=== PATIENT | male | born 1960 | race Caucasian/White ===

== ENCOUNTER → 2023-09-26 | Outpatient (CLI) | payer MEDICARE ==
--- NOTE | 2023-09-26 13:57 | CT ---
EXAMINATION TYPE: CT left knee - [facility] Protocol DATE OF EXAM: 09/26/2023 COMPARISON: NONE HISTORY: pre-op left total knee CT DLP: 1296 mGycm. Automated Exposure Control for Dose Reduction was Utilized. TECHNIQUE: CT scan of the left lower extremity is performed without contrast. FINDINGS: Exam is for surgical planning and not for diagnostic purposes. Incidental some diverticula in the sig moid colon are seen on CT pelvic images. Moderate axial joint space loss in both hips is appreciated. Images of the left knee show moderate to severe narrowing with joint space sclerosis medial tibiofem oral compartment. Imaging of the bilateral ankles shows asymmetric more prominent degenerative change s on the left. IMPRESSION: As above.
== END | disposition home or self-care (01) ==
LOC: RADCTMAIN 12:59
PROVIDERS: ATTEND Orthopaedic Surgery
DX: Z01.818 Encounter for other preprocedural examination (principal); M17.12 Unilateral primary osteoarthritis, left knee; K57.30 Diverticulosis of large intestine without perforation or abscess without bleeding

== ENCOUNTER → 2023-10-11 | Outpatient (CLI) | payer MEDICARE ==
[2023-10-11 14:48] LABS: Partial Thromboplastin Time 24.5 sec (22.0-30.0)
[2023-10-11 18:18] LABS: HCT 45.6 % (39.6-50.0); HGB 14.7 g/dL (13.0-17.0); MCH 27.2 pg (27.0-32.0); MCHC 32.2 g/dL (32.0-37.0); MCV 84.4 FL (80.0-97.0); Mean Platelet Volume 10.2 FL (9.5-12.2); NRBC Per 100 WBC 0 X 10*3/uL (0.00-0.01); Platelet Count 175 X 10*3/uL (140-440); RDW 13.9 % (11.5-14.5); WBC 9.23 X 10*3/uL (4.50-10.00)
[2023-10-11 18:29] LABS: ALT 20 U/L (10-49); AST 19 U/L (14-35); Albumin 4.5 g/dL (3.8-4.9); Alkaline Phosphatase 98 U/L (41-126); BUN/Creat Ratio 14.67 Ratio (12.00-20.00); Blood Urea Nitrogen 13.2 mg/dL (9.0-27.0); Calcium 9.6 mg/dL (8.7-10.3); Chloride 105 mmol/L (96-109); Globulin 2.5 g/dL (1.6-3.3); Glucose 90 mg/dL (70-110); Potassium 4.4 mmol/L (3.5-5.5); Sodium 142 mmol/L (135-145); Total Bilirubin 0.3 mg/dL (0.3-1.2)
[2023-10-11 22:22] LABS: Prothrombin Time 10.7 sec (10.0-12.5)
[2023-10-12 01:32] LABS: Appearance,Urine Clear (Clear); Bilirubin,Urine Negative (Negative); Blood,Urine Negative (Negative); Color,Urine Yellow (Yellow); Ketones,Urine Negative (Negative); Nitrite,Urine Negative (Negative); Specific Gravity,Urine 1.015 (1.001-1.030); Urobilinogen,Urine 0.2 E.U./DL
== END | disposition home or self-care (01) ==
LOC: LABPAT 13:20
PROVIDERS: ATTEND Orthopaedic Surgery
DX: Z01.812 Encounter for preprocedural laboratory examination (principal); M17.12 Unilateral primary osteoarthritis, left knee
CPT/HCPCS: 80053; 81003; 83036; 85027; 85610; 85730; 87070

== ENCOUNTER 2023-10-24 10:22 | Observation (INO) | payer MEDICARE ==
[~2023-10-24 10:22] MED LIST: ACETAMINOPHEN TAB 500 MG TAB PO PRN; DEXAMETHASONE SOD PHOSPHATE 10 MG/ML 1 ML VIAL IV PRN; DOCUSATE 100 MG CAP PO PRN; FAMOTIDINE 20 MG/2 ML VIAL IVP PRN; HYDROmorphone 0.5 MG/0.5 ML SYRINGE IVP PRN; KETOROLAC 15 MG/ML 1 ML VIAL IVP PRN; LIDOCAINE 1% (10MG/ML) FOR IV START INTRADERMA PRN; ONDANSETRON 4 MG/2 ML VIAL IVP PRN; ROPIVACAINE/EPI/CLONIDINE/KET 50 ML SYRINGE MISCELLANE PRN; TRANEXAMIC 1,000 MG/100ML-NACL 1,000 MG in SALINE 1 100ML.BAG IV PRN; TRANEXAMIC 1,000 MG/100ML-NACL 1,000 MG in SALINE 1 100ML.BAG IVPB PRN; ceFAZolin 3 GM in SODIUM CHLORIDE 0.9% 100 ML IVPB PRN; oxyCODONE ER 10 MG TAB.ER.12H PO PRN
[2023-10-24] MEDS ORDERED: LACTATED RINGERS 1,000 ML IV ONE ×2 (10:50→14:03)
[2023-10-24 11:18] LABS: Glucose,Whole Blood 96 mg/dL (70-110)
[2023-10-24] MEDS ORDERED: MIDAZOLAM 2 MG/2 ML VIAL IVP ONE (12:05)
[2023-10-24] MEDS ORDERED: fentaNYL (PF) 50 MCG/ML 2 ML AMP ONE (12:18)
[2023-10-24] MEDS ORDERED: PHENYLEPHRINE 10 MG/ML VIAL ONE (12:18)
[2023-10-24] MEDS ORDERED: ROPIVACAINE 5 MG/ML 30 ML VIAL ONE (12:18)
[2023-10-24] MEDS ORDERED: PROPOFOL 10 MG/ML 20 ML VIAL IV ONE (12:18)
[2023-10-24] MEDS ORDERED: DEXAMETHASONE SOD PHOSPHATE 4 MG/ML 1 ML VIAL ONE (12:18)
[2023-10-24] MEDS ORDERED: MIDAZOLAM 2 MG/2 ML VIAL ONE (12:18)
[2023-10-24] MEDS ORDERED: TRANEXAMIC 1,000 MG/100ML-NACL PREMIX BAG ONE (12:18)
--- NOTE | 2023-10-24 14:45 | P.OP ---
Date of Procedure: 10/24/23 Preoperative Diagnosis: 1. Severe left knee osteoarthritis 2. BMI 46 Postoperative Diagnosis: Same Procedure(s) Performed: 1. Left total knee arthroplasty 2. Computer assisted musculoskeletal navigation using CT/MRI images Implants: 1. [employer] CR Femur Size #3 2. [employer] [place] Tibial Base Size #4 3. [employer] CS poly Size #10 4. [employer]lon all poly patella, Size #29 Anesthesia: regional, spinal Surgeon: Owen Schmitt Estimated Blood Loss (ml): 100 IV fluids (ml): 1,000 Pathology: none sent Condition: stable Disposition: PACU Indications for Procedure: I met with the patient preoperatively in the office setting and discussed treatment of their symptomatic knee arthritis. They failed a long course of nonsurgical treatment and elected to proceed with an elective total knee replacement. I discussed the potential risks and complications at length and gave them ample time to ask questions. Risks discussed included: risks from anesthesia, superficial site surgical infection, acute and/or chronic periprosthetic joint infection, delayed wound healing, drainage, wound necrosis, instability, stiffness, stiffness requiring manipulation and/or revision surgery, damage to local blood vessels or nerves, aseptic loosening of the implants, extensor mechanism issues including disruption, patellar maltracking, avascular necrosis etc., continued or worsened knee pain, generalized dissatisfaction with surgical outcome, need for revision surgery, an inability to regain preinjury level of function, DVT, PE, other medical complications, and possibly loss of life or limb. The patient voiced their understanding that while these are the most common complications other less common complications are possible. They provided both their verbal and written consent to go forward with surgery. Operative Findings: Severe tricompartmental osteoarthritis with complete joint space loss in the medial and patellofemoral compartments Description of Procedure: The patient was identified in preoperative holding and the correct operative extremity was verified and marked with a marker. I reviewed the consent form with the patient at length. All of their questions were answered. The patient was given a block by anesthesia. They were then brought back to the operating room. They were transferred onto the operating room table where a general anesthetic, preoperative antibiotics, and tranexamic acid were administered by anesthesia. A tourniquet was applied to the proximal aspect of the operative extremity. The contralateral extremity was padded under the heel and secured to the operating room table with a nonsterile blue towel and tape. The ipsilateral arm was carefully draped across the patient's chest and secured with a pillow and foam. A post was applied over the lateral aspect of the ipsilateral thigh and a bolster was placed under the ipsilateral foot. I verified that the operative extremity was stable and the knee was flexed to 90. The operative extremity was then placed in a leg german, nonsterile drapes were applied, and the extremity was prepped and draped sterilely in the standard sterile fashion. Prior to starting surgery timeout was performed identifying the correct patient, operative extremity, and procedure. The leg was then elevated, exsanguinated with an Esmarch bandage, and the tourniquet was inflated. An anterior midline incision was made sharply with a scalpel. Once I had dissected deep to the superficial fascial layer medial and lateral flaps were elevated. A medial parapatellar arthrotomy was created. Upon opening the knee joint there were diffuse arthritic changes in all 3 compartments. The anterior horn of the medial meniscus were sharply released and a medial release was performed around the posterior medial corner of the knee to facilitate retractor placement. The fat pad was excised with electrocautery. The patella was found to be severely arthritic and a provisional cut was made with a sagittal saw to facilitate mobilization of the extensor mechanism during the procedure. Remnants of the ACL and PCL were then excised from the notch. 4 mm pins were then placed within the incision in the medial distal femur and proximal tibia. Arrays were applied to the pins and I verified they were completely tightened. The knee was then registered with the [employer] robot and manipulations in implant position were made to balance the knee and opitmize implant position. Using the Jan robotic saw all cuts were made in accordance with our plan. After all bony fragments had been removed the cuts were verified with the planar probe. The tibia was then subluxed forward and sized. The knee was brought into flexion and a lamina beater room supervisor was placed to allow removal of the meniscal remnants both medially and laterally as well as posterior osteophytes. Local anesthetic was then infiltrated around the joint capsule. Trial implants were then placed within the knee. Range of motion and collateral ligament tension was then evaluated. Adjustments in implant size and position were then made accordingly. Once the knee was felt to be appropriately balanced the Jan pins were removed. The patella was then recut, sized, and punched. A trial patellar button was then placed. With the trial components in place, the patella tracked midline. The femur was then drilled and the trial component removed. The trial tibial component was then appropriately rotated, pinned, and prepared for the keel. All trial components were then removed from the knee. The knee was thoroughly irrigated with pulsatile lavage. Cement was prepared via vacuum mixing in a bowl on the back table. I then hand pressurized cement into the femur and tibia and placed the implants beginning with the tibial base tray and poly liner, femoral component, and finally the patellar button. All extruded cement was removed including from the pin sites. Once the cement had hardened the knee was evaluated one final time with the final polyethylene liner in place. The knee had full extension and flexion and felt stable to varus and valgus stress throughout the arc of motion. The tourniquet was released and with the tourniquet down the patella tracked midline. All bleeders were controlled with electrocautery. The knee was then soaked for 3 minutes with a dilute Betadine soak. The knee was thoroughly irrigated using 3 L of sterile saline and pulsatile lavage. The extensor mechanism was then reapproximated using pop off Vicryl sutures followed by a running barbed suture. The knee was then closed in layers with a 0 strata fix for the deep fascial layer, 2-0 strata fix for the superficial subcutaneous layer and Monocryl and Steri-Strips for the skin. A sterile dressing was applied. I verified that all instrument, sponge, and sharp counts were correct. The patient was then transferred off the operating room table, extubated, and brought to recovery having tolerated the procedure well. PLAN: The patient can weight-bear as tolerated on the operative extremity. DVT prophylaxis with aspirin 81 mg twice a day based on preoperative risk stratification. Follow-up in the office in 2 weeks for wound check and x-rays of the knee including an AP and lateral.T
[2023-10-24] MEDS ORDERED: MAGNESIUM HYDROXIDE 2,400 MG/30 ML CUP PO PRN (14:46)
[2023-10-24] MEDS ORDERED: HYDROcodone/APAP 5-325MG 1 EACH TAB PO PRN (14:46)
[2023-10-24] MEDS ORDERED: bisacodyL 10 MG SUPP RECTAL PRN (14:46)
[2023-10-24] MEDS ORDERED: hydrOXYzine pamoate 25 MG CAP PO PRN (14:46)
[2023-10-24] MEDS ORDERED: HYDROmorphone 1 MG/ML 1 ML SYRINGE IVP PRN (14:46)
[2023-10-24] MEDS ORDERED: diazePAM 5 MG TAB PO PRN (14:46)
[2023-10-24] MEDS ORDERED: NALOXONE 0.4 MG/ML 1 ML VIAL IV PRN (14:46)
[2023-10-24] MEDS ORDERED: ONDANSETRON 4 MG/2 ML VIAL IVP PRN (14:46)
--- NOTE | 2023-10-24 15:44 | XR ---
EXAMINATION TYPE: XR knee limited LT DATE OF EXAM: 10/24/2023 COMPARISON: None HISTORY: Knee replacement TECHNIQUE: 2 view left knee FINDINGS: Tibial femoral components have been placed. Postsurgical soft tissue changes are evident. N o acute fractures or dislocations. IMPRESSION: 1. No acute osseous abnormality post left knee replacement.
--- NOTE | 2023-10-24 17:05 | P.CONS ---
History of Present Illness - Reason for Consult Consult date: 10/24/23 - History of Present Illness Patient is a 63-year-old male with history of hypertension and dyslipidemia presenting for elective left knee arthroplasty. Denies any chest pain, shortness of breath, abdominal pain, nausea, vomiting, urinary or bowel complaints. Vital signs within normal limits now, was earlier hypertensive. Blood glucose 96. Pertinent positives and negatives as discussed in HPI, a complete review of systems was performed and all other systems are negative. Patient seen and examined at bedside. Vital signs reviewed General: nontoxic, no distress, appears at stated age, morbidly obese Derm: warm, dry, dressing clean, dry, intact Head: atraumatic, normocephalic, symmetric Eyes: EOMI, no lid lag, anicteric sclera, pupils equal round reactive to light ENT: Nose and ears atraumatic Neck: No thyromegaly, supple Mouth: no lip lesion, mucus membranes moist Cardiovascular: S1S2 reg, no murmur, no edema Lungs: clear to auscultation bilateral, no rhonchi, no rales, no wheeze, no accessory muscle use Abdominal: soft, nontender to palpation, no guarding, no appreciable organomegaly Ext: no gross muscle atrophy, muscle strength muscle strength 5 out of 5 in all 4 extremities, no contractures Neuro: CN II-XII grossly intact Psych: Alert, oriented, appropriate affect Assessment/Plan: Status post left knee arthroplasty Hypertension Dyslipidemia Morbid obesity, BMI 46 -On oral [place] as needed, IV Dilaudid as needed for pain control, monitor for respiratory depression -On bowel regimen -Aspirin 81 mg twice a day for DVT prophylaxis -Restarted home metoprolol 100 mg daily, lisinopril 20 mg daily, verapamil 120 mgdaily, Zetia 10 mg daily -[facility] and BMP tomorrow -Outpatient structured weight loss program recommended Thank you for allowing us to participate in the care of this pleasant patient. Do not hesitate to contact us with questions. Someone can be reached from the [facility] hospitalist group all hours of the day at [phone] or via [employer]. Past Medical History Past Medical History: GERD/Reflux, Hypertension, Osteoarthritis (OA) Additional Past Medical History / Comment(s): arthritis in neck and hands, diverticulitis History of Any Multi-Drug Resistant Organisms: None Reported Past Surgical History: Appendectomy, Cholecystectomy, Hernia Repair, Tonsillectomy Additional Past Surgical History / Comment(s): C6 and C7 fusion, Rt inguinal hernia repair Past Anesthesia/Blood Transfusion Reactions: Motion Sickness, Postoperative Nausea & Vomiting (PONV) Smoking Status: Never smoker - Past Family History Father Family Medical History: Congestive Heart Failure (CHF), Diabetes Mellitus, Hypertension Additional Family Medical History / Comment(s): pace maker, kidney failure Mother Family Medical History: Hypertension Additional Family Medical History / Comment(s): dimentia and alzihmers Medications and Allergies Home Medications Medication Instructions Recorded Confirmed Type Loratadine [Claritin] 10 mg PO DAILY 11/24/15 10/24/23 History Metoprolol Succinate (ER) [Toprol 100 mg PO DAILY 11/24/15 10/24/23 History Xl] lisinopriL [Zestril] 20 mg PO DAILY 11/24/15 10/24/23 History Ezetimibe [Zetia] 10 mg PO DAILY 10/18/23 10/24/23 History Verapamil HCl [Verapamil Sr] 120 mg PO DAILY 10/18/23 10/24/23 History Aspirin 81 mg PO BID #60 tab 10/24/23 Rx Diclofenac Sodium [Voltaren] 75 mg PO BID #60 tab 10/24/23 Rx Docusate [Colace] 100 mg PO BID #28 capsule 10/24/23 Rx HYDROcodone/APAP 5-325MG [[place] 1 - 2 tab PO Q6HR PRN #32 tab 10/24/23 Rx 5-325] Omeprazole 40 mg PO DAILY #30 cap 10/24/23 Rx Allergies Allergy/AdvReac Type Severity Reaction Status Date / Time adhesive Allergy Rash/Hives Verified 10/24/23 10:53 Sulfa (Sulfonamide Allergy Unknown Verified 10/24/23 10:53 Antibiotics) Penicillins AdvReac Rash/Hives Verified 10/24/23 10:53 Physical Exam Vitals: Vital Signs Temp Pulse Pulse Resp BP BP Pulse Ox 10/24/23 15:38 70 16 133/68 97 10/24/23 15:23 83 16 151/71 97 10/24/23 15:07 73 16 175/79 91 L 10/24/23 14:53 78 16 158/79 92 L 10/24/23 14:37 98.2 F 88 16 178/72 98 10/24/23 12:12 84 16 187/79 95 10/24/23 12:02 186/97 10/24/23 11:15 97.1 F L 88 19 190/109 94 L Intake and Output 10/24/23 10/24/23 10/24/23 06:59 14:59 22:59 Intake Total 1300 50 Output Total 50 Balance 1250 50 Intake: IV 1300 50 Output: Estimated Blood Loss 50 Other: Weight 129.2 kg
[2023-10-24] MEDS: LACTATED RINGERS 1,000 ML IV SCH (17:06)
[2023-10-24] MEDS: SODIUM CHLORIDE 0.9% 1,000 ML IV SCH (17:46)
[2023-10-24] MEDS: HYDROmorphone 0.5 MG/0.5 ML SYRINGE IVP PRN (19:15)
[2023-10-24] MEDS ORDERED: SENNOSIDES-DOCUSATE SODIUM 1 EACH TAB PO SCH (21:00)
[2023-10-24] MEDS: ceFAZolin 3 GM in SODIUM CHLORIDE 0.9% 100 ML IVPB SCH (21:28)
[2023-10-24] MEDS: ASPIRIN 81 MG PO SCH (21:29)
[2023-10-24] MEDS ORDERED: TEMAZEPAM 15 MG CAP PO PRN (22:00)
[2023-10-25] MEDS: SODIUM CHLORIDE 0.9% 1,000 ML IV SCH (00:50)
[2023-10-25 01:24] VITALS: PULSE 76
[2023-10-25] MEDS: HYDROcodone/APAP 10-325MG 1 EACH TAB PO PRN ×3 (02:04→08:08)
[2023-10-25] MEDS: HYDROmorphone 0.5 MG/0.5 ML SYRINGE IVP PRN (03:03)
[2023-10-25] MEDS: LACTATED RINGERS 1,000 ML IV SCH (06:01)
[2023-10-25] MEDS: ceFAZolin 3 GM in SODIUM CHLORIDE 0.9% 100 ML IVPB SCH (06:02)
[2023-10-25 07:25] VITALS: BP 182/93; RESP 19; TEMP 98.4
--- NOTE | 2023-10-25 07:43 | P.DS ---
Providers Date of admission: Sunday10/24/2023 Attending physician: Owen Schmitt Consults: 10/24/23 14:46 Consult Physician Routine Consulting Provider: Venus Samson Consult Reason/Comments: post op medical management Do you want consulting provider notified?: Yes Primary care physician: Rex [facility]y [facility] Course: The patient is a very pleasant 63-year-old male who is admitted under my care underwent an uncomplicated left total knee replacement history. Following surgery he was transferred to the orthopedic floor in stable condition. Internal medicine saw him for perioperative medical management. I evaluated the patient on postoperative day number well and he was doing well. His dressing was intact. Motor and sensory function were intact. He worked with physical therapy. He got up and he was able to ambulate without difficulty. He did well and was ultimately cleared for discharge home. Plan - Discharge Summary Discharge Rx Participant: No New Discharge Prescriptions: New Aspirin 81 mg PO BID #60 tab Docusate [Colace] 100 mg PO BID #28 capsule Omeprazole 40 mg PO DAILY #30 cap HYDROcodone/APAP 5-325MG [Curlew 5-325] 1 - 2 tab PO Q6HR PRN #32 tab PRN Reason: Pain Diclofenac Sodium [Voltaren] 75 mg PO BID #60 tab No Action Loratadine [Claritin] 10 mg PO DAILY Metoprolol Succinate (ER) [Toprol Xl] 100 mg PO DAILY lisinopriL [Zestril] 20 mg PO DAILY Ezetimibe [Zetia] 10 mg PO DAILY Verapamil HCl [Verapamil Sr] 120 mg PO DAILY Discharge Medication List Loratadine [Claritin] 10 mg PO DAILY 11/24/15 [History] Metoprolol Succinate (ER) [Toprol Xl] 100 mg PO DAILY 11/24/15 [History] lisinopriL [Zestril] 20 mg PO DAILY 11/24/15 [History] Ezetimibe [Zetia] 10 mg PO DAILY 10/18/23 [History] Verapamil HCl [Verapamil Sr] 120 mg PO DAILY 10/18/23 [History] Aspirin 81 mg PO BID #60 tab 10/24/23 [Rx] Diclofenac Sodium [Voltaren] 75 mg PO BID #60 tab 10/24/23 [Rx] Docusate [Colace] 100 mg PO BID #28 capsule 10/24/23 [Rx] HYDROcodone/APAP 5-325MG [Curlew 5-325] 1 - 2 tab PO Q6HR PRN #32 tab 10/24/23 [Rx] Omeprazole 40 mg PO DAILY #30 cap 10/24/23 [Rx] Follow up Appointment(s)/Referral(s): Owen Schmitt MD [Medical Doctor] - 2 Weeks Activity/Diet/Wound Care/Special Instructions: 1. Weight-bear as tolerated on your operative extremity unless instructed otherwise. Use a walker or other assistive device to ambulate. 2. Leave surgical dressing in place. If your dressing becomes saturated with blood, there is drainage, or the dressing becomes loose please contact the office. 3. It is okay to shower with your surgical dressing, but do not submerge in water (no hot tubs, bath's, swimming etc.) 4. Make sure to take her blood clot prevention medication as prescribed (aspirin, Eliquis, Xarelto, and Plavix are commonly prescribed medications for blood clot prevention) 5. While taking Curlew or Percocet for pain make sure you're taking a stool softener (Colace) and drink lots of water. 6. Keep all follow-up appointments as scheduled. You will usually be seen in 1-2 weeks following surgery. 7. Please contact the office with any questions or concerns [phone] Discharge Disposition: HOME SELF-CARE
[2023-10-25] MEDS: ASPIRIN 81 MG PO SCH ×2 (07:55→08:08)
[2023-10-25] MEDS: METOPROLOL SUCCINATE (ER) 100 MG TAB.ER.24H PO SCH ×2 (07:56→08:29)
[2023-10-25] MEDS: LORATADINE 10 MG TAB PO SCH ×2 (07:56→08:08)
[2023-10-25] MEDS: VERAPAMIL SR 120 MG TABLET.ER PO SCH ×2 (07:56→08:29)
[2023-10-25] MEDS: lisinopriL 20 MG TAB PO SCH ×2 (07:56→08:08)
[2023-10-25] MEDS ORDERED: EZETIMIBE 10 MG TAB PO SCH (09:00)
--- NOTE | 2023-10-25 10:44 | P.ANPRN ---
Procedure Note - Anesthesia - Nerve Block Performed Left Adductor Canal Single Time Out Performed: Yes Date of Procedure: 10/24/23 Procedure Start Time: 12:05 Procedure Stop Time: 12:09 Location of Patient: PreOp Indication: Acute Post-Operative Pain, Requested by Surgeon Sedation Type: Sedate with meaningful contact maintained Preparation: Sterile Prep Position: Supine Needle Types: Pajunk Needle Gauge: 21 Ultrasound used to visualize needle placement: Yes Ultrasound used to observe medication spread: Yes Blood Aspirated: No Pain Paresthesia on Injection Noted: No Resistance on Injection: Normal Image Stored and Saved: Yes Events: Uneventful and Well Tolerated (Ropivacaine 0.5% 20 mL plus dexamethasone 4 mg)
--- NOTE | 2023-10-25 10:45 | P.ANPRN ---
Procedure Note - Anesthesia - Nerve Block Performed Left iPack Single Time Out Performed: Yes Date of Procedure: 10/24/23 Procedure Start Time: 12:10 Procedure Stop Time: 12:11 Location of Patient: PreOp Indication: Acute Post-Operative Pain, Requested by Surgeon Sedation Type: Sedate with meaningful contact maintained Preparation: Sterile Prep Position: Supine Needle Types: Pajunk Needle Gauge: 21 Ultrasound used to visualize needle placement: Yes Ultrasound used to observe medication spread: Yes Blood Aspirated: No Pain Paresthesia on Injection Noted: No Resistance on Injection: Normal Image Stored and Saved: Yes Events: Uneventful and Well Tolerated (Ropivacaine 0.5% 20 mL plus dexamethasone 4 mg)
--- NOTE | 2023-10-25 10:53 | P.PN ---
Subjective Progress Note Date: 10/25/23 Subjective: Patient seen and examined at bedside. No acute events overnight. Pertinent positives and negatives as discussed above, a complete review of systems was performed and all other systems are negative. Vitals Signs Reviewed. General: nontoxic, no distress, appears at stated age, morbidly obese Derm: warm, dry, dressing clean, dry, and Head: atraumatic, normocephalic, symmetric Eyes: EOMI, no lid lag, anicteric sclera Mouth: no lip lesion, mucus membranes moist Cardiovascular: S1S2 reg, no murmur Lungs: CTA bilateral, no rhonchi, no rales , no accessory muscle use Abdominal: soft, nontender to palpation, no guarding, no appreciable organomegaly Ext: no gross muscle atrophy, no edema, no contractures Neuro: CN II-XI grossly intact, no focal neuro deficits Psych: Alert, oriented, appropriate affect Data Reviewed Today: Pertinent Labs: CBC and BMP pending, will be reviewed when available Imaging: No new imaging Assessment and Plan: Status post left knee arthroplasty Hypertension Dyslipidemia Morbid obesity, BMI 46 -On oral Walsh as needed, IV Dilaudid as needed for pain control, monitor for respiratory depression -On bowel regimen -Aspirin 81 mg twice a day for DVT prophylaxis -Continue metoprolol 100 mg daily, lisinopril 20 mg daily, verapamil 120 mgdaily, Zetia 10 mg daily -Outpatient structured weight loss program recommended Patient to follow-up with PCP with regards to hypertension. Patient is otherwise medically optimized for discharge Thank you for allowing us to participate in the care of this pleasant patient. Do not hesitate to contact us with questions. Someone can be reached from the [facility] hospitalist group all hours of the day at [phone] or via [employer]. Objective - Vital Signs Vital signs: Vital Signs Temp 98.4 F 10/25/23 07:07 Pulse 76 10/25/23 07:07 Resp 19 10/25/23 07:07 BP 182/93 10/25/23 07:07 Pulse Ox 93 L 10/25/23 07:07 FiO2 Intake & Output 10/24/23 10/25/23 10/25/23 18:59 06:59 18:59 Intake Total 1550 Output Total 50 Balance 1500 Weight 129.2 kg Intake: IV 1350 Intake, IV Titration 200 Amount Sodium Chloride 0.9% 1, 200 000 ml @ 100 mls/hr IV . Q10H [facility] Rx#:[id number] Output: Estimated Blood Loss 50 Other: Voiding Method Toilet # Voids 1 2 # Bowel Movements 0
[2023-10-25 11:08] LABS: Basophils # (A) 0.02 X 10*3/uL (0.00-0.10); Basophils % (A) 0.1 %; Eosinophils # (A) 0 X 10*3/uL (0.04-0.35); Eosinophils % (A) 0 %; HCT 40.5 % (39.6-50.0); HGB 13.1 g/dL (13.0-17.0); Lymphocytes # (A) 0.79 X 10*3/uL (0.90-5.00); Lymphocytes % (A) 3.6 %; MCH 27.5 pg (27.0-32.0); MCHC 32.3 g/dL (32.0-37.0); MCV 84.9 FL (80.0-97.0); Mean Platelet Volume 10.3 FL (9.5-12.2); Monocytes # (A) 1.43 X 10*3/uL (0.20-1.00); Monocytes % (A) 6.5 %; NRBC Per 100 WBC 0 X 10*3/uL (0.00-0.01); Neutrophils # (A) 19.64 X 10*3/uL (1.80-7.70); Neutrophils % (A) 89.3 %; Platelet Count 204 X 10*3/uL (140-440); RBC 4.77 X 10*6/uL (4.40-5.60); RDW 13.6 % (11.5-14.5); WBC 21.98 X 10*3/uL (4.50-10.00)
[2023-10-25 11:26] LABS: BUN/Creat Ratio 19.89 Ratio (12.00-20.00); Blood Urea Nitrogen 17.9 mg/dL (9.0-27.0); Chloride 104 mmol/L (96-109); Glucose 138 mg/dL (70-110); Potassium 4.6 mmol/L (3.5-5.5); Sodium 138 mmol/L (135-145)
[2023-10-25 11:27] LABS: Calcium 9.1 mg/dL (8.7-10.3); Carbon Dioxide 22.6 mmol/L (21.6-31.8)
== END 2023-10-25 10:02 | disposition home or self-care (01) ==
LOC: OR 10:22 → 4SSUR 10:23 → OR 14:32 → 4SSUR 14:32 → OR 10-25 10:02 → 4SSUR 10-25 10:02
PROVIDERS: ADMIT Orthopaedic Surgery; ATTEND Orthopaedic Surgery
DX: M17.12 Unilateral primary osteoarthritis, left knee (principal); M25.762 Osteophyte, left knee; G89.18 Other acute postprocedural pain; I10 Essential (primary) hypertension; E78.5 Hyperlipidemia, unspecified; K21.9 Gastro-esophageal reflux disease without esophagitis; E66.01 Morbid (severe) obesity due to excess calories; Z68.42 Body mass index [BMI] 45.0-49.9, adult; Z79.899 Other long term (current) drug therapy; Z79.82 Long term (current) use of aspirin; Z88.0 Allergy status to penicillin; Z88.2 Allergy status to sulfonamides
CPT/HCPCS: 0055T; 27447; 64447; 64999; 80048; 85025; 96361; 96365; 96366; 96375; 96376

== ENCOUNTER → 2024-01-28 | Outpatient (CLI) | payer MEDICARE ==
--- NOTE | 2024-01-28 14:19 | CT ---
EXAMINATION TYPE: CT right knee - [facility] Protocol DATE OF EXAM: 01/28/2024 COMPARISON: None HISTORY: Presurgical evaluation CT DLP: 2172 mGycm Automated exposure control for dose reduction was used. Contrast: None Technique: [facility] presurgical planning of the right knee. Images were obtained in the axial plane at 2 mm thick sections through the hip and ankle and 1 mm thick sections through the knee. FINDINGS: Hip: Right femoral head articulates with the acetabulum. Joint space is narrowed. No acute fracture o r dislocation is evident. Knee: There is narrowing of the medial compartment joint space. Medial tibial plateau femoral condyla r spurring is present. Lateral compartment joint space appears preserved. There is limitation to this level due to beam hardening artifact from a prior left knee prosthesis. Ankle: Secondary ossification centers inferior to the medial malleolus. Ankle mortise appears intact. No acute fractures evident. IMPRESSION: 1. CT for [facility] knee presurgical planning.
== END | disposition home or self-care (01) ==
LOC: RADCTMAIN 11:42
PROVIDERS: ATTEND Orthopaedic Surgery
DX: M25.562 Pain in left knee (principal); Z47.1 Aftercare following joint replacement surgery; Z96.652 Presence of left artificial knee joint; Z68.42 Body mass index [BMI] 45.0-49.9, adult

== ENCOUNTER → 2025-01-06 | Outpatient (CLI) | payer MEDICARE ==
[2025-01-06 13:42] VITALS: BP 160/84; PULSE 79; RESP 16; TEMP 98; BMI 47.4
--- NOTE | 2025-01-06 13:57 | P.BASOAP ---
Subjective Progress Note Date: 01/06/25 Principal diagnosis: Morbid obesity Patient here for Lap-Band adjustment. Patient was last seen a month or so ago. He had 0.5 cc added. Did not notice any increase in restriction. No vomiting. No heartburn. Objective - Vital Signs Vital signs: Vital Signs Temp 98 F 01/06/25 13:39 Pulse 79 01/06/25 13:39 Resp 16 01/06/25 13:39 BP 160/84 01/06/25 13:39 Pulse Ox FiO2 Intake & Output 01/05/25 01/06/25 01/06/25 18:59 06:59 18:59 Weight 133.356 kg - Exam Abdomen: Soft, nontender, nondistended Assessment/Plan (1) Morbid obesity Narrative/Plan: Patient would like more fluid added to the band. Will add 1 cc for total of 3 cc. The patient's lap band port was palpated. The site was aseptically prepped. The Cantu needle was advanced into the port. A total of 1 ml of fluid was added. Pressure was held and a sterile dressing was applied. Plan: Date: 01/06/25 Initial Weight: 115.258 kg Initial BMI: 41.0 Current Weight: 133.356 kg Current BMI: 47.4 Type of Surgery: Adjustable Gastric Banding Total Volume in Band: 2.0 Previous Volume: Volume Removed: Volume Added: Band Size:
== END ==
LOC: BARWHC3 13:29
PROVIDERS: ATTEND Surgery
DX: E66.01 Morbid (severe) obesity due to excess calories (principal); Z68.42 Body mass index [BMI] 45.0-49.9, adult; Z91.048 Other nonmedicinal substance allergy status; Z88.2 Allergy status to sulfonamides; Z88.0 Allergy status to penicillin
CPT/HCPCS: 43999

== ENCOUNTER → 2025-02-10 | Outpatient (CLI) | payer MEDICARE ==
[2025-02-10 14:13] VITALS: BP 148/67; PULSE 76; TEMP 97.6; BMI 47.2
--- NOTE | 2025-02-10 16:20 | P.BASOAP ---
Subjective Progress Note Date: 02/10/25 Principal diagnosis: Morbid obesity Patient returns for recheck. Last seen 01/06. 1 from 1.5 to 2 cc at the time. Patient still feels minimal restriction. No nausea or vomiting. No night cough. Weights about the same. Objective - Vital Signs Vital signs: Vital Signs Temp 97.6 F 02/10/25 14:10 Pulse 76 02/10/25 14:10 Resp BP 148/67 02/10/25 14:10 Pulse Ox FiO2 Intake & Output 02/09/25 02/10/25 02/10/25 18:59 06:59 18:59 Weight 132.903 kg - Exam Abdomen: Soft, nontender, nondistended Assessment/Plan (1) Morbid obesity Narrative/Plan: 64-year-old male with morbid obesity. Patient requesting additional fluid added to the band. Will add an additional 1 cc. The patient's lap band port was palpated. The site was aseptically prepped. The Cantu needle was advanced into the port. A total of 1 ml of fluid was added for a total of 4 cc. Pressure was held and a sterile dressing was applied. Plan: Date: 02/10/25 Initial Weight: 115.258 kg Initial BMI: 41.0 Current Weight: 132.903 kg Current BMI: 47.2 Type of Surgery: Total Volume in Band: 4 Previous Volume: Volume Removed: Volume Added: 1 Band Size:
== END ==
LOC: BARWHC3 13:55
PROVIDERS: ATTEND Surgery
DX: E66.01 Morbid (severe) obesity due to excess calories (principal); Z68.42 Body mass index [BMI] 45.0-49.9, adult; Z91.048 Other nonmedicinal substance allergy status; Z88.2 Allergy status to sulfonamides; Z88.0 Allergy status to penicillin
CPT/HCPCS: 43999